=== PATIENT | female | born 1985 | race Caucasian/White ===

== ENCOUNTER 2018-11-01 23:56 | Emergency (ER) | payer SELFPAY ==
[~2018-11-01] VITALS: Ht 149.9 cm; Wt 66.0 kg
[2018-11-02 08:40] VITALS: BP 101/72
== END 2018-11-02 08:53 | disposition left against medical advice (07) ==
LOC: ER 23:56
DX: Z53.21 Procedure and treatment not carried out due to patient leaving prior to being seen by health care provider (principal)